=== PATIENT | female | born 1940 | race Caucasian/White ===

== ENCOUNTER → 2018-05-16 | Day surgery (SDC) | payer OTHER ==
[2018-05-10 14:18] VITALS: Ht 154.9 cm; Wt 88.6 kg
[~2018-05-16] VITALS: Ht 154.9 cm; Wt 88.6 kg
[~2018-05-16] MED LIST: ATOR-22 PO; CHOL2000 PO; FENTANYL CITRATE INJ 50 MCG/1 ML 2 ML VIAL ONE; GLIP2.5T11 PO; LIDOCAINE HCL 2% 2 ML VIAL (20MG/ML) ONE; LISI-729 PO; MECL1TAB42 PO; MULT-190 PO; PANT40TA PO; PROPOFOL IV EMULSION 10 MG/ML 20 ML VIAL ONE; SODIUM CHLORIDE 0.9% 500ML 500 ML IV ONE; WARF5TAB7 PO
--- NOTE | 2018-05-16 10:52 | Endo History and Physical ---
History & Physical Date of Service: May 16, 2018. Chief Complaint: Anemia and dysphagia Referring Physician: Dr. Duong History of Present Illness anemia and chronic GI bleeding Past Surgical History Hx Cardiac Surgery: No Hx Internal Defibrillator: No Hx Pacemaker: No Hx Abdominal Surgery: Yes (GB SURG,HERNIA) Hx of Implantable Prosthesis: No Hx Post-Op Nausea and Vomiting: No Hx Cancer Surgery: Yes (HYSTERECTOMY) Hx Thoracic Surgery: No Hx Orthopedic: No (FOOT SURG) Hx Urinary Tract Surgery: Yes (BLADDER LIFT) Family History None Social History Smoking Status: Never Smoker Hx Substance Use: No Hx Alcohol Use: No Allergies Coded Allergies: Adhesives (Verified Allergy, Unknown, IRRITATION SKIN TAPE BANDAIDS, ) Penicillins (Verified Allergy, Unknown, RASH, 05/16/18) Current Medications Reported Home Medications Medications Dose Route/Sig Max Daily Dose Days Date Category Dose Instructions Meclizine Hcl 25 Mg Tab 1 Tab PO TID PRN 10 05/10/18 Reported Vitamin D3 (Cholecalciferol) 2,000 Unit Cap 1 Cap PO QAM 90 05/10/18 Reported Ocuvite Preservision (Multivitamins/Minerals) 1 Tab Tab 1 Tab PO QAM 05/10/18 Reported Zestril (Lisinopril) 5 Mg Tab 2.5 Mg PO QPM 05/10/18 Reported Lipitor (Atorvastatin Calcium) 20 Mg Tab 20 Mg PO QPM 05/10/18 Reported Jantoven (Warfarin Sodium) 5 Mg Tab 5 Mg PO QPM 05/10/18 Reported PT WILL FOLLOW INSTRUCTIONS FROM [facility] Protonix (Pantoprazole Sodium) 40 Mg Tab 40 Mg PO QPM 05/10/18 Reported Glipizide Er (Glipizide) 2.5 Mg Tab 1 Tab PO QAM 90 05/10/18 Reported Vital Signs Weight (Kilograms): 88.64 Height (Feet): 5 Height (Inches): 1 Date Time Temp Pulse Resp B/P (MAP) Pulse Ox O2 Delivery O2 Flow Rate FiO2 05/16/18 10:22 36.7 71 18 186/70 (108) 97 Room Air Physical Exam General Appearance: no apparent distress Respiratory/Chest: Auscultation: breath sounds normal Cardiovascular: Heart Auscultation: RRR Abdomen: Inspection & Palpation: soft Liver: non-tender Assessment and Plan stable for EGD/[place]
--- NOTE | 2018-05-16 11:29 | Discharge Instructions ---
Endoscopy Patient Instructions Date / Procedure(s) Performed May 16, 2018. Colonoscopy, EGD Allergy Information Coded Allergies: Adhesives (Verified Allergy, Unknown, IRRITATION SKIN TAPE BANDAIDS, ) Penicillins (Verified Allergy, Unknown, RASH, 05/16/18) Discharge Date / Findings May 16, 2018. normal EGD Left sided diverticulosis Medication Instructions Stopped Medication(s): Coumadin stopped on 04 May for procedure to be done at [facility]. It was cx and scheduled for here. No coumadin taken since and was not bridged. Restart Stopped Medication(s): Restart coumadin tonight Provider Instructions Activity Restrictions - No exercising or heavy lifting for 24 hours. - Do not drink alcohol the day of the procedure. - Do not drive a car or operate machinery until the day after the procedure. - Do not make any important decisions or sign important papers in 24 hours after the procedure. Following Day: - Return to full activity which may include returning to work/school. Diet Start your diet with liquids and light foods (jello, soup, juice, toast). Then eat your usual diet if not nauseated. Treatment For Common After Affects For mild abdominal pain, bloating, or excessive gas: - Rest - Eat lightly - Lie on right side Follow-Up Information Follow-up with Dr. Duong as scheduled Anesthesia Information What You Should Know You have had a procedure that required some medicine to reduce anxiety and discomfort. This treatment is called moderate sedation. After receiving the treatment, you may be sleepy, but you will be able to breathe on your own. The effects of the treatment may last for several hours. Follow these instructions along with Activity/Diet recommendations noted above: * Do NOT do anything where dizziness or clumsiness would be dangerous. * Rest quietly at home today, then you can be up and about tomorrow. * Have a responsible person stay with you the rest of today. * You may have had an I.V. today. If so, you may take the dressing off later today. Recommendations Call your doctor if: * Trouble breathing * Continuous vomiting for more than 24 hours * Temperature above 101 degrees * Severe abdominal pain or bloating * Pain not relieved by pain medicine ordered * There is increased drainage or redness from any incision * A large amount of rectal bleeding greater than 2-3 tablespoons. (If you had a polyp/s removed or have hemorrhoids, a small amount of blood - from the rectum is to be expected.) * You have any unanswered questions or concerns. IN THE EVENT OF A SERIOUS EMERGENCY, GO TO THE NEAREST EMERGENCY ROOM Your discharge instructions were prepared by provider Krzysztof Segura. Patient Instructions Signature Page Ambar Orozco Patient (or Guardian) Signature/Date: I have read and understand the instructions given to me by my caregivers. Caregiver/RN/Doctor Signature/Date: The above-named patient and/or guardian has received patient instructions on this date. + Original Patient Signature Page (only) stays with chart. Please make copy for patient.
--- NOTE | 2018-05-16 11:33 | GI REPORT ---
Patient Name: Ambar Orozco Procedure Date: 05/16/2018 10:52 AM Date of : 1940 Admit Type: Outpatient Age: 77 Gender: Female Attending MD: Krzysztof Segura MD Procedure: Upper GI endoscopy Providers: Krzysztof Segura MD Referring MD: Bryan Duong Indications: Iron deficiency anemia, Dysphagia Medicines: See the Anesthesia note for documentation of the administered medications Complications: No immediate complications. Estimated Blood Loss: Estimated blood loss: none. Procedure: Pre-Anesthesia Assessment: - Prior to the procedure, a History and Physical was performed, and patient medications, allergies and sensitivities were reviewed. The patient's tolerance of previous anesthesia was reviewed. - The risks and benefits of the procedure and the sedation options and risks were discussed with the patient. All questions were answered and informed consent was obtained. - Patient identification and proposed procedure were verified prior to the procedure by the physician and the nurse. The procedure was verified in the pre-procedure area. - Pre-procedure physical examination revealed no contraindications to sedation. - After reviewing the risks and benefits, the patient was deemed in satisfactory condition to undergo the procedure. After obtaining informed consent, the endoscope was passed under direct vision. Throughout the procedure, the patient's blood pressure, pulse, and oxygen saturations were monitored continuously. The scope was introduced through the mouth, and advanced to the third part of duodenum. The upper GI endoscopy was accomplished without difficulty. The patient tolerated the procedure well. Findings: The esophagus was normal. The stomach was normal. The examined duodenum was normal. The cardia and gastric fundus were normal on retroflexion. Impression: - Normal esophagus. - Normal stomach. - Normal examined duodenum. - No specimens collected. Recommendation: - Perform a colonoscopy today. Krzysztof Segura M.D. Krzysztof Segura MD 05/16/2018 11:33:26 AM This report has been signed electronically. Note Initiated On: 05/16/2018 10:52 AM Number of Addenda: 0 I attest to the content of the Intraoperative Record and orders documented therein, exceptions below {[id number]}
--- NOTE | 2018-05-16 11:51 | GI REPORT ---
Patient Name: Ambar Orozco Procedure Date: 05/16/2018 10:51 AM Date of : 1940 Admit Type: Outpatient Age: 77 Gender: Female Attending MD: Krzysztof Segura MD Procedure: Colonoscopy Providers: Krzysztof Segura MD Referring MD: Bryan Duong Indications: Iron deficiency anemia Medicines: See the Anesthesia note for documentation of the administered medications Complications: No immediate complications. Estimated Blood Loss: Estimated blood loss: none. Procedure: Pre-Anesthesia Assessment: - See the other procedure note for documentation of the pre-procedure assessment. After I obtained informed consent, the scope was passed under direct vision. Throughout the procedure, the patient's blood pressure, pulse, and oxygen saturations were monitored continuously. The scope was introduced through the anus and advanced to the cecum, identified by appendiceal orifice and ileocecal valve. The colonoscopy was performed without difficulty. The patient tolerated the procedure well. The quality of the bowel preparation was good. Findings: The perianal and digital rectal examinations were normal. Multiple small and large-mouthed diverticula were found in the sigmoid colon and descending colon. The exam was otherwise without abnormality on direct and retroflexion views. Impression: - Diverticulosis in the sigmoid colon and in the descending colon. - The examination was otherwise normal on direct and retroflexion views. - No specimens collected. Recommendation: - Discharge patient to home. - I do not recommend a repeat screening colonoscopy in 10 years given her age and co morbid disease. Krzysztof Segura M.D. Krzysztof Segura MD 05/16/2018 11:51:04 AM This report has been signed electronically. Note Initiated On: 05/16/2018 10:51 AM Number of Addenda: 0 I attest to the content of the Intraoperative Record and orders documented therein, exceptions below {[id number]}
[2018-05-16 12:04] VITALS: BP 184/57; PULSE 56; O2SAT 95
--- NOTE | 2018-05-16 14:04 | Anesthesiology Progress Note ---
Anesthesia Post Op Note Date & Time May 16, 2018 at 14:03 Vital Signs Pain Intensity: 0 Vital Signs Past 12 Hours Date Time Temp Pulse Resp B/P (MAP) Pulse Ox O2 Delivery O2 Flow Rate FiO2 05/16/18 12:04 56 18 184/57 (99) 95 Room Air 05/16/18 11:45 59 18 171/56 (94) 97 Room Air 05/16/18 11:30 63 18 146/55 (85) 99 Room Air 05/16/18 10:22 36.7 71 18 186/70 (108) 97 Room Air Notes Mental Status: alert / awake / arousable, participated in evaluation Pt Amnestic to Procedure: Yes Nausea / Vomiting: adequately controlled Pain: adequately controlled Airway Patency, RR, SpO2: stable & adequate BP & HR: stable & adequate Hydration State: stable & adequate Anesthetic Complications: no major complications apparent
== END | disposition home or self-care (01) ==
LOC: C.GI 09:22
PROVIDERS: ATTEND Internal Medicine Gastroenterology
DX: D50.9 Iron deficiency anemia, unspecified (principal); R13.10 Dysphagia, unspecified; K57.30 Diverticulosis of large intestine without perforation or abscess without bleeding; E11.9 Type 2 diabetes mellitus without complications; I10 Essential (primary) hypertension; E78.5 Hyperlipidemia, unspecified; E66.9 Obesity, unspecified; Z86.718 Personal history of other venous thrombosis and embolism; Z86.711 Personal history of pulmonary embolism; Z88.0 Allergy status to penicillin; Z79.01 Long term (current) use of anticoagulants; Z79.899 Other long term (current) drug therapy; Z86.010 Personal history of colon polyps; Z68.37 Body mass index [BMI] 37.0-37.9, adult